=== PATIENT | female | born 1955 | race Two or more races ===

== ENCOUNTER → 2024-04-07 | Outpatient (CLI) | payer OTHER, SELFPAY ==
[2024-04-07 10:02] LABS: Collection Type, Urine Clean Catch
[2024-04-07 10:31] LABS: Basophils % (Auto) 0 % (0-2.5); Eosinophils # (Auto) 0.1 Thou/mm3 (0.0-0.5); Eosinophils % (Auto) 3 % (0-10); Hematocrit 39.5 % (36.0-46.0); Hemoglobin 13.4 g/dL (12.0-16.0); Immature Granulocytes % (Auto) 1 % (0-0); Immature Granulocytes Auto 0.03 Thou/mm3 (0.00-0.00); Lymphocytes # (Auto) 0.9 Thou/mm3 (1.0-4.8); Lymphocytes % (Auto) 18 % (10-50); Mean Corpuscular HGB Conc 33.9 g/dl (31.0-37.0); Mean Corpuscular Hemoglobin 30.7 pg (25.0-35.0); Mean Corpuscular Volume 91 fL (80-100); Monocytes # (Auto) 0.4 Thou/mm3 (0.0-0.8); Monocytes % (Auto) 8 % (0-12); Neutrophils # (Auto) 3.5 Thou/mm3 (1.8-7.7); Neutrophils % (Auto) 70 % (37-80); Nucleated Red Blood Cell % 0 /100 WBC (0); Platelet Count 263 Thou/mm3 (140-440); RDW Standard Deviation 40.5 fL (36.4-46.3); Red Blood Count 4.36 Miln/mm3 (4.00-5.20)
[2024-04-07 10:39] LABS: Bilirubin,Urine Negative (Negative); Blood,Urine Negative (Negative); Clarity,Urine Clear (Clear/Hazy); Color,Urine Lt-Yellow (Lt Yel-Yel); Culture Indicated,Urine Not Indicated; Glucose, Urine Negative (Negative); Ketones,Urine Negative (Negative); Leukocyte Esterase,Urine Negative (Negative); Nitrite,Urine Negative (Negative); PH,Urine 6.5 (5.0-7.0); Protein,Urine Negative (Neg - Trace); RBC,Urine < 1 /hpf (0-3); Specific Gravity,Urine 1.013 (1.001-1.035); Squamous Epithelial Cell,Urine < 1 /hpf (0-5); Urobilinogen,Urine Negative mg/dL (0.0-1.0); WBC,Urine < 1 /hpf (0-5)
[2024-04-07 10:48] LABS: Alanine Aminotransferase 14 U/L (10-49); Albumin, Serum 4.7 gm/dL (3.4-4.8); Albumin/Globulin Ratio 1.8 (1.2-2.2); Alkaline Phosphatase 112 U/L (46-116); Anion Gap 5 (7-16); Aspartate Amino Transferase 15 U/L (0-34); BUN/Creatinine Ratio 19 Ratio (12-20); Bilirubin,Total 0.4 mg/dL (0.3-1.2); Blood Urea Nitrogen 17 mg/dL (9-23); Calcium 9.6 mg/dL (8.3-10.6); Calcium (Corrected) 9.6 mg/dL (8.5-10.1); Carbon Dioxide 28.4 mMol/L (20.0-31.0); Chloride 103 mMol/L (98-107); Cholesterol 178 mg/dL (132-200); Creatinine (Component) 0.9 mg/dL (0.6-1.3); Free T4 (Free Thyroxine) 1.05 ng/dL (0.89-1.76); Globulin 2.6 gm/dL (2.3-3.5); Glucose 128 mg/dL (74-106); HDL Cholesterol 59 mg/dL (40-60); LDL Cholesterol,Calculated 104 mg/dL (0-130); Osmolality,Calculated 275 (275-295); Potassium 3.8 mMol/L (3.4-5.1); Sodium 136 mMol/L (136-145); Thyroid Stimulating Hormone 3.63 uIU/mL (0.55-4.78); Total Protein 7.3 gm/dL (5.7-8.2); Triglycerides 76 mg/dL (30-150); eGFR > 60 See Note
[2024-04-07 10:59] LABS: Creatinine MALB Rnd Ur 56 mg/dL (30-125); Microalbumin, Random Urine < 3 mg/L (0-300)
[2024-04-07 11:32] LABS: Glucose Estimated Average 137 mg/dL (80-131); Hemoglobin A1C 6.4 % Hgb (4.8-6.0)
== END | disposition home or self-care (01) ==
LOC: COPL 09:12
PROVIDERS: PCP Internal Medicine; Referring Provider Internal Medicine; Visit Provider Internal Medicine
DX: E11.65 Type 2 diabetes mellitus with hyperglycemia (principal); I10 Essential (primary) hypertension
CPT/HCPCS: 36415; 80053; 80061; 81001; 82043; 82570; 83036; 84439; 84443; 85025

== ENCOUNTER → 2024-04-17 | Outpatient (CLI) | payer OTHER, SELFPAY ==
[2024-04-17 15:11] LABS: OBS Card Expiration Date 2029/09; OBS Card Lot # 23001; OBS Performed By LAB; OBS QC OK? Yes
[2024-04-17 16:00] LABS: OBS Developer Lot # 23003; Occult Blood, Stool Negative (Negative); Occult Blood, Stool #2 Negative (Negative); Occult Blood, Stool #3 Negative (Negative)
== END | disposition home or self-care (01) ==
LOC: SLDO 14:48
PROVIDERS: PCP Internal Medicine; Referring Provider Internal Medicine; Visit Provider Internal Medicine
DX: E11.65 Type 2 diabetes mellitus with hyperglycemia (principal); I10 Essential (primary) hypertension
CPT/HCPCS: 82270

== ENCOUNTER 2024-07-27 09:15 | Emergency (ER) | payer OTHER, SELFPAY ==
[2024-07-27] VITALS (9 sets, daily range): BP systolic 134–163; BP diastolic 68–88; PULSE 66–94; RESP 15–23; TEMP 36.4–36.6; O2SAT 96–100; BMI 35.1
--- NOTE | 2024-07-27 09:49 | EKG_ITS ---
[facility] Test Date: 2024-07-27 Pat Name: AELSIA GUERRERO Department: Room: - Gender: Female Head Of Music: : 1955 Requested By: Nii Sorto Order Number: [id number] Reading MD: Nii Sorto Measurements Intervals [place] Rate: 65 P: -28 CT: 156 QRS: 13 QRSD: 93 T: 40 QT: 403 QTc: 422 Interpretive Statements SINUS RHYTHM LOW QRS VOLTAGE IN PRECORDIAL LEADS [QRS DEFLECTION < 1.0 mV IN CHEST LEADS] Compared to ECG 05/23/2022 11:57:31 No significant changes /store/S0/[id number]/ecg/[id number].pdf
--- NOTE | 2024-07-27 09:49 | XR_ITS ---
Examination: CT abdomen and pelvis without contrast. Coronal 3-D reconstructions. Sagittal 2-D reconstructions. Date and time of exam:July 27, 2024 1019 hrs. Indications: Generalized abdominal pain and nausea beginning 4 days ago CTDI: vol (mGy): 9.06 DLP: (mGycm): 497 Technique: Axial images of the abdomen have been obtained, 3 mm slice thickness Intravenous contrast material has not been administered. Low dose protocols were performed. One or more of the following dose reduction techniques were used; automated exposure control, adjustment of the mA and/or KV according to patient size, use of iterative reconstruction technique. Findings: Diffuse fatty infiltration throughout the liver, 3 mm liver calcification Hepatomegaly 17 cm No splenic pancreatic or adrenal mass lesion No gallstones Mild right moderate left renal parenchymal scar formation, no hydronephrosis or renal calculi Appendix is not visualized, no pericecal inflammatory change A few loops of fluid distended small bowel in the left abdomen, coronal image 58 No bowel obstruction No diverticulitis Atrophic anteverted uterus No adnexal mass No bladder mass Prominent osteopenia Impression: Mild hepatomegaly, fatty liver Mild right moderate left renal parenchymal scar formation No hydronephrosis or ureteral calculi Mild small bowel ileus versus enteritis No obstruction No CT findings of appendicitis or diverticulitis
--- NOTE | 2024-07-27 09:50 | PD.EDRME ---
Rapid Medical Screening Exam RME Arrival date/time: 07/27/24 09:15 69-year-old female with a history of hyperlipidemia presents to the emergency room with a chief complaint of right-sided flank pain and generalized 8 out of 10 abdominal pain, nausea, and dizziness x 2 days. I have greeted and performed a focused initial assessment of this patient. A comprehensive ED assessment and evaluation of the patient, analysis of all test results, and completion of the medical decision making process will be conducted by additional ED providers. Time Seen by Provider: 07/27/24 09:42 Vital signs: Vital Signs Temperature 97.5 F 07/27/24 09:48 Pulse Rate 73 07/27/24 09:48 Respiratory Rate 18 07/27/24 09:48 Blood Pressure 136/82 H 07/27/24 09:48 Pulse Oximetry (%) 100 07/27/24 09:48 Oxygen Delivery Method Room Air 07/27/24 09:48 Vital signs reviewed by provider: Yes
[2024-07-27] MEDS: KETOROLAC INJ 60 MG/2 ML VIAL 30 MG IM (10:00)
[2024-07-27 10:15] LABS: Basophils % (Auto) 1 % (0-2.5); Eosinophils % (Auto) 1 % (0-10); Hematocrit 39.5 % (36.0-46.0); Hemoglobin 13.4 g/dL (12.0-16.0); Immature Granulocytes % (Auto) 0 % (0-0); Immature Granulocytes Auto 0.03 Thou/mm3 (0.00-0.00); Lymphocytes # (Auto) 0.7 Thou/mm3 (1.0-4.8); Lymphocytes % (Auto) 10 % (10-50); Mean Corpuscular HGB Conc 33.9 g/dl (31.0-37.0); Mean Corpuscular Hemoglobin 29.9 pg (25.0-35.0); Mean Corpuscular Volume 88 fL (80-100); Monocytes # (Auto) 0.4 Thou/mm3 (0.0-0.8); Monocytes % (Auto) 5 % (0-12); Neutrophils # (Auto) 6.1 Thou/mm3 (1.8-7.7); Neutrophils % (Auto) 84 % (37-80); Nucleated Red Blood Cell % 0 /100 WBC (0); Platelet Count 234 Thou/mm3 (140-440); Red Blood Count 4.48 Miln/mm3 (4.00-5.20); White Blood Count 7.4 Thou/mm3 (3.6-11.0)
[2024-07-27 10:22] LABS: B-Type Natriuretic Peptide 25 pg/mL (0-100)
[2024-07-27 10:23] LABS: Alanine Aminotransferase 14 U/L (10-49); Albumin, Serum 4.5 gm/dL (3.4-4.8); Albumin/Globulin Ratio 1.7 (1.2-2.2); Alkaline Phosphatase 109 U/L (46-116); Anion Gap 10 (7-16); Aspartate Amino Transferase 13 U/L (0-34); BUN/Creatinine Ratio 22 Ratio (12-20); Bilirubin,Total 0.3 mg/dL (0.3-1.2); Blood Urea Nitrogen 20 mg/dL (9-23); Calcium 9.4 mg/dL (8.3-10.6); Calcium (Corrected) 9.4 mg/dL (8.5-10.1); Carbon Dioxide 24.5 mMol/L (20.0-31.0); Chloride 102 mMol/L (98-107); Creatinine (Component) 0.9 mg/dL (0.6-1.3); Estimated Creatinine Clearance 58.1 mL/min (>60); Globulin 2.7 gm/dL (2.3-3.5); Glucose 207 mg/dL (74-106); Lipase 31 U/L (12-53); Osmolality,Calculated 280 (275-295); Potassium 4.3 mMol/L (3.4-5.1); Sodium 136 mMol/L (136-145); Total Protein 7.2 gm/dL (5.7-8.2); Troponin I < 0.002 ng/mL (0.0-0.045); eGFR > 60 See Note
--- NOTE | 2024-07-27 11:03 | PD.EDABDPN ---
ED Abdominal Pain RME/HPI General Chief Complaint: Abdominal Pain Stated complaint: WEAKNESS Time seen by provider: 07/27/24 09:42 Arrival date/time: 07/27/24 09:15 RME / HPI RME / HPI narrative: 07/27/24 09:15 69-year-old female with a history of hyperlipidemia presents to the emergency room with a chief complaint of right-sided flank pain and generalized 8 out of 10 abdominal pain, nausea, and dizziness x 2 days. I have greeted and performed a focused initial assessment of this patient. A comprehensive ED assessment and evaluation of the patient, analysis of all test results, and completion of the medical decision making process will be conducted by additional ED providers. DR. BOATENG MAIN ED EVALUATION: 69 year old female with past medical history significant for hypertension, hypercholesterolemia presents to the Emergency Department with complaint of right sided abdominal pain onset 4 days ago with associated bloating. Pain is described as aching and rated moderate in severity. No similar symptoms in the past. Per daughter, patient has been dizzy and weak. Patient also reports nausea but no vomiting. Normal bowel movement. Patient speaks English and daughter is translating. Patient denies any of the following: rectal bleeding, vomiting, diarrhea, chest pain, shortness of breath, or any other symptoms at this time. Related Data Home Medications ?Medication ?Instructions ?Recorded ?Confirmed pravastatin 20 mg tablet 20 mg PO DAILY #0 tabs 10/06/14 11/28/23 (Pravachol) lisinopril 20 1 tab PO QDAY 05/25/19 11/28/23 mg-hydrochlorothiazide 12.5 mg tablet Allergies Allergy/AdvReac Type Severity Reaction Status Date / Time Penicillins Allergy Severe Rash Verified 07/27/24 09:32 Review of Systems Review of Systems Systems Reviewed: All systems reviewed, normal except as documented Narrative Review of Systems: GEN: No fever, no chills, no weight loss EYES: No discharge, no visual changes, no pain HEENT: No ear pain, no congestion, no sore throat PULM: No shortness of breath, no cough, no congestion CV: No chest pain, no dyspnea on exertion, no palpitations GI: + nausea, no vomiting, no diarrhea, + right sided abdominal pain with associated bloating, no constipation : No frequency, no urgency and no dysuria MUSC/SKEL: No joint pain, no back pain SKIN: No rash PSYCH: No hallucinations, no depression HEME/LYMPH: No easy bleeding or bruising tendencies NEURO: + generalized dizziness and weakness, no headache Past Medical History Past Medical History CARDIAC: Positive Cardiac Disorders, Hypercholesterolemia (takes PO med) and Hypertension (takes PO med) GASTROINTESTINAL: Positive Gastrointestinal Disorders, Ulcer and Gastroesophageal Reflux Disease REPRODUCTIVE: Positive Previous Pregnancies (G3) MUSCULOSKELETAL: Positive Musculoskeletal Disorders, Arthritis and Carpal Tunnel Syndrome (right trigger finger) ENT: Positive Deafness ([place] [facility] HEARING AIDE, RIGHT COCHLEAR IMPLANT) OTHER HISTORY: Positive Hospitalization ([facility]) Surgical History SURGICAL: Positive Cardiac Surgery, Ear Surgery (RIGHT EAR COCHLEAR IMPLANT) and Joint Replacement Social History SMOKING STATUS: Never smoker SUBSTANCE USE: does not use ALCOHOL: Never ED Exam Narrative Physical exam: Physical Exam: General: The vital signs were reviewed. The patient is non-toxic, in no apparent distress and appears healthy with a patent airway, no respiratory distress and has no apparent circulatory problems. Head & Scalp: Normocephalic, atraumatic. Face: Appears normal and is without lesions, deformity. Ears: Left external pinna appears normal. Right external pinna appears normal. Eyes: The sclera is anicteric. No obvious photophobia. The Left and Right Orbit/Lid/Conjunctiva appears normal without swelling, discoloration or injection. Nose: The nose is without deformity, discharge or tenderness; Throat: Appears normal. The mucous membranes are pink and moist without exudates, redness or mass seen. The tongue appears normal. Neck: The neck is supple and no apparent mass or adenopathy. Chest: The chest wall is normal in size and symmetry and has no chest wall tenderness or crepitus. The patient displays normal ventilator effort without retractions, accessory muscle use and has adequate air movement bilaterally with no wheezes and no rales. Cardiovascular: Regular rate and rhythm; No murmurs, rubs, or gallops; Gastrointestinal: The abdomen appears normal. No obvious hernias or mass. The abdomen has some very vague right upper right upper lateral discomfort otherwise is soft and benign, non-distended, with no pain, no guarding and no rebound tenderness. Bowel sounds are present and normal sounding. No CVA tenderness. Genitourinary: Normal inspection Back/Spine: Nontender normal inspection Extremities/Musculoskeletal/lymphatic: The bilateral upper and lower extremities are warm. There is no evidence of arterial insufficiency. There is no evidence of venous insufficiency/edema. The patient spontaneously moves bilateral upper and lower extremities with no pain and no limitation of movement. There is no apparent, injury or trauma. Skin: The skin is warm, dry and intact. No rashes. No petechia. No purpura. No abnormal bruising. The color is appropriate with no cyanosis. Mental status/Psychiatric: Mental status is appropriate for age. The patient has no apparent delusions, visual hallucinations, no apparent audible hallucinations. The patient has no apparent suicidal thoughts/ideation and no apparent homicidal thoughts/ideation. Neurological: The patient is awake, alert, interactive, cordial, cooperative and is oriented to name and situation. The patient follows commands and answers historical question with no impairment. There is no visual disturbance apparent. The pupils are equal and reactive bilaterally with normal eye movements and no diplopia The bilateral upper and lower extremities have normal strength, normal range of motion and normal functioning. The gait, station and balance appear to be baseline with no acute change Course Quality Measures none Orders Category Date Time Status EKG (ED ONLY) *Do not use* NOW Care 07/27/24 09:[address] abdomen pelvis wo con Stat Exams 07/27/24 09:49 Completed EKG (ED Only) Stat Exams 07/27/24 09:49 Draft US abdomen limited Stat Exams 07/27/24 11:08 Completed BNP [B-Type Natriuretic Peptide] Stat Lab 07/27/24 10:00 Completed CBC Stat Lab 07/27/24 10:00 Completed CMP [Comprehensive Metabolic Panel] Stat Lab 07/27/24 10:00 Completed Lipase Stat Lab 07/27/24 10:00 Completed Troponin I Stat Lab 07/27/24 10:00 Completed UA [Urinalysis] Stat Lab 07/27/24 09:49 Ordered Urinalysis, C/S if Indicated Stat Lab 07/27/24 11:15 Completed Urine Culture Stat Lab 07/27/24 11:15 Received Ketorolac Inj [Toradol Inj] Med 07/27/24 09:49 Discontinued 30 mg IM X1 ONE Vital Signs Vital signs: Vital Signs Temperature 97.5 F 07/27/24 09:48 Pulse Rate 73 07/27/24 09:48 Respiratory Rate 18 07/27/24 09:48 Blood Pressure 136/82 H 07/27/24 09:48 Pulse Oximetry (%) 100 07/27/24 09:48 Oxygen Delivery Method Room Air 07/27/24 09:48 Abdominal Pain [facility] Narrative [facility] Narrative:: I, Stacy Medina, am scribing for and in the presence of Dr. Boateng. Patient is a 69-year-old English speaking lady comes in with her daughters whose had some upper right-sided abdominal pain and patient reported feeling bloating or a ball sensation. She has had no vomiting or diarrhea. She has had no fever. She had a medical workup which included CBC which was within normal limits. Chemistries are unremarkable electrolytes are normal kidney functions normal AST ALT are 13 and 14 troponin was negative BNP was negative catheter urine specimen came back with 2+ ketones otherwise negative. CT scan of the abdomen reveals no acute surgical problems or some scarring described on the left kidney but no hydronephrosis is seen. There is no mass or tumor seen. Dilated of uncertain significance concerning for either ileus but no small bowel obstruction is seen. Ultrasound was done which reveals no gallstones. Reevaluation at 1530 hrs. the patient is smiling alert she ambulated the halls without difficulty. Her vital signs are stable. She feels good and wants to go home. Family is advised to give her clear liquids return if getting worse and follow-up with doctor in 1 to 3 days. They know if the pain is getting worse to return for reevaluation. Patient data External records reviewed:: [facility] previous records (Reviewed colonoscopy note by Dr. Baeza dated 12/04/23) Clinical information provided by:: patient and family (daughter translated) Social determinants that could affect healthcare access:: none Patient has the following chronic illnesses:: Hypertension, hypercholesterolemia How is presenting disease/condition affected by chronic disease/condition?: exacerbated by Evaluation data The following diagnostics were reviewed and interpreted by me:: lab results, radiology exam(s) and EKG tracing(s) (EKG#1: EKG at 1004 hours. Interpreted by me: sinus rhythm, rate 65, no STEMI) Lab and/or radiology exams considered but not ordered:: none Interpretation Summary: See above under MDM narrative. RADIOLOGY Procedure(s): CT abdomen pelvis wo con Accession Number(s): [id number] cc: Nii Rivera; Qamar Cowart MD~ Examination: CT abdomen and pelvis without contrast. Coronal 3-D reconstructions. Sagittal 2-D reconstructions. Date and time of exam:July 27, 2024 1019 hrs. Indications: Generalized abdominal pain and nausea beginning 4 days ago CTDI: vol (mGy): 9.06 DLP: (mGycm): 497 Technique: Axial images of the abdomen have been obtained, 3 mm slice thickness Intravenous contrast material has not been administered. Low dose protocols were performed. One or more of the following dose reduction techniques were used; automated exposure control, adjustment of the mA and/or KV according to patient size, use of iterative reconstruction technique. Findings: Diffuse fatty infiltration throughout the liver, 3 mm liver calcification Hepatomegaly 17 cm No splenic pancreatic or adrenal mass lesion No gallstones Mild right moderate left renal parenchymal scar formation, no hydronephrosis or renal calculi Appendix is not visualized, no pericecal inflammatory change A few loops of fluid distended small bowel in the left abdomen, coronal image 58 No bowel obstruction No diverticulitis Atrophic anteverted uterus No adnexal mass No bladder mass Prominent osteopenia Impression: Mild hepatomegaly, fatty liver Mild right moderate left renal parenchymal scar formation No hydronephrosis or ureteral calculi Mild small bowel ileus versus enteritis No obstruction No CT findings of appendicitis or diverticulitis Dictated By: Qamar Cowart MD Procedure(s): US abdomen limited Accession Number(s): [id number] cc: Garrett Boateng MD; Qamar Cowart MD; Estella Marshall MD~ Examination: Abdomen sonogram, Limited Date and time of exam: July 27, 2024 1157 hrs. Indications: Right upper abdominal pain beginning 3 months ago worse today Technique: Real-time villafana scale transabdominal sonographic images of the upper abdomen obtained. Findings: Normal gallbladder Normal common bile duct 0.5 cm Pancreatic head 2.4 cm Fatty liver, 16.5 cm 6 mm calcification Normal hepatopedal portal venous flow Patent IVC Impression: Normal gallbladder Normal common bile duct Dictated By: Qamar Cowart MD Medications / Prescriptions Medications or Prescriptions considered but not ordered:: none Medication administrations:: Medication Administration History Discontinued Medications Ketorolac Tromethamine (Ketorolac Inj 60 Mg/2 Ml Vial) 30 mg IM X1 ONE Stop: 07/27/24 09:50 Last Admin: 07/27/24 10:00 Dose: 30 mg Documented By: BD see above Consultations Consultation(s) initiated? (list below): No Diagnosis Differential diagnosis abdominal pain: abdominal pain, pancreatitis and other (gallstones) Most likely diagnosis given after review of the tests above:: See below Admission Indicated Admission indicated?: not indicated Admission Request Was there a request for admission?: No Disposition Plan Disposition Plan: Discharge Discharge Attestation Discharge Attestation: The patient and all family members were given an opportunity to ask questions and understood the discharge instructions. Discharge instructions specifically effects, indications for sooner follow up or return to the emergency department, and the expected course of current diagnosis. Patient condition: Stable Discharge Plan Plan Patient Disposition: HOME (Self Care) Prescriptions/Referrals Prescriptions/Med Rec: No Action pravastatin [Pravachol] 20 MG tablet 20 mg PO DAILY Qty: 0 lisinopril-hydrochlorothiazide 20-12.5 mg Tablet 1 tab PO QDAY Referrals: Toma Daniels MD [Primary Care Provider] - In 1 week Problem List Clinical Impression: Abdominal pain, Ileus Patient/Caregiver Discharge Instructions Education Materials: Abdominal Pain, Ileus Additional Instructions: Today your medical workup reveals essentially normal urine and blood test. Your CT scan has a few loops of small bowel which are dilated suggesting a possible ileus. This is nonspecific and may be a viral illness versus other things. As we discussed if you are getting worse in any way please return for reevaluation in 6 to 12 hours. Use clear liquids advance as tolerated. Follow-up with your doctor in 1 to 2 days as we discussed. And if you are getting worse in any way please return for reevaluation. Print Language: English Stand Alone Forms: Patient Portal Info Letter
--- NOTE | 2024-07-27 11:08 | XR_ITS ---
Examination: Abdomen sonogram, Limited Date and time of exam: July 27, 2024 1157 hrs. Indications: Right upper abdominal pain beginning 3 months ago worse today Technique: Real-time villafana scale transabdominal sonographic images of the upper abdomen obtained. Findings: Normal gallbladder Normal common bile duct 0.5 cm Pancreatic head 2.4 cm Fatty liver, 16.5 cm 6 mm calcification Normal hepatopedal portal venous flow Patent IVC Impression: Normal gallbladder Normal common bile duct
[2024-07-27 11:25] LABS: Collection Type, Urine Catheter; RBC,Urine 0 /hpf (0-3)
[2024-07-27 12:03] LABS: Bilirubin,Urine Negative (Negative); Blood,Urine Negative (Negative); Clarity,Urine Clear (Clear/Hazy); Color,Urine Lt-Yellow (Lt Yel-Yel); Culture Indicated,Urine Not Indicated; Glucose, Urine Negative (Negative); Ketones,Urine 2+ (Negative); Leukocyte Esterase,Urine Negative (Negative); Nitrite,Urine Negative (Negative); Protein,Urine Negative (Neg - Trace); Squamous Epithelial Cell,Urine < 1 /hpf (0-5); Urobilinogen,Urine Negative mg/dL (0.0-1.0); WBC,Urine 2 /hpf (0-5)
== END 2024-07-27 15:59 | disposition home or self-care (01) ==
PROVIDERS: Nurse Practitioner Family; Emergency Provider Emergency Medicine; PCP Internal Medicine
DX: K56.7 Ileus, unspecified (principal); K76.0 Fatty (change of) liver, not elsewhere classified; N28.89 Other specified disorders of kidney and ureter; R94.31 Abnormal electrocardiogram [ECG] [EKG]; I10 Essential (primary) hypertension; E78.00 Pure hypercholesterolemia, unspecified
CPT/HCPCS: 51701; 36415; 74176; 76705; 80053; 81001; 83690; 83880; 84484; 85025; 87086; 93005; 96372; 99284; J1885

== ENCOUNTER → 2024-12-10 | Outpatient (CLI) | payer OTHER, SELFPAY ==
--- NOTE | 2024-12-10 11:45 | XR_ITS ---
Examination: Screening digital mammography, bilateral Computer aided detection 3-D breast Tomosynthesis, bilateral Date and time of exam: December 10, 2024 1130 hours Compared to mammograms dating to December 28, 2020 Indication: Screening Technique: Nonmagnified MLO, CC views of the breasts to been obtained, reconstructed from 3-D Tomosynthesis images. R2 computer aided detection program utilized for evaluation of suspicious masses and/or abnormal calcifications. 3-D Tomosynthesis images obtained. Findings: Scattered areas of fibroglandular density Benign calcifications. No interval suspicious masses Impression: BI-RADS category II: Benign Findings. Recommend 1 year follow-up mammogram.
== END | disposition home or self-care (01) ==
PROVIDERS: Referring Provider Internal Medicine; Visit Provider Internal Medicine
DX: Z12.31 Encounter for screening mammogram for malignant neoplasm of breast (principal); R92.323 Mammographic fibroglandular density, bilateral breasts; R92.1 Mammographic calcification found on diagnostic imaging of breast
CPT/HCPCS: 77063; 77067

== ENCOUNTER → 2024-12-23 | Outpatient (CLI) | payer OTHER, SELFPAY ==
--- NOTE | 2024-12-23 08:32 | XR_ITS ---
Examination: Hand, right 3 views Technique: Hand AP, oblique, lateral 3 views Date and time of exam: December 23, 2024 0849 hours INDICATIONS: Right wrist and hand pain beginning one week ago. FINDINGS: Severe osteopenia Diffuse mild narrowing joints of the wrist and hand No erosive arthritis No cortical bone destruction No avascular necrosis No opaque foreign bodies IMPRESSION: Diffuse mild narrowing joints of the wrist and hand No erosive arthritis
--- NOTE | 2024-12-23 08:32 | XR_ITS ---
Examination: Wrist, right 3 views Technique: Wrist AP, oblique, lateral 3 views Date and time of exam: December 23, 2024 0849 hours INDICATIONS: Right wrist pain beginning one week ago. FINDINGS: Significant osteopenia. Mild narrowing radiocarpal intercarpal and carpometacarpal joints. No erosive arthritis. No fracture IMPRESSION: Significant osteopenia. Mild narrowing joints of the wrist
== END | disposition home or self-care (01) ==
LOC: CDIM 08:24
PROVIDERS: PCP Internal Medicine; Referring Provider Internal Medicine; Visit Provider Internal Medicine
DX: M85.88 Other specified disorders of bone density and structure, other site (principal)
CPT/HCPCS: 73110; 73130

== ENCOUNTER → 2025-01-26 | Outpatient (CLI) | payer OTHER, SELFPAY ==
--- NOTE | 2025-01-26 13:20 | XR_ITS ---
Examination: Bone densitometry Date and time of exam:January 26, 2025, 1342 hours. INDICATIONS: Menopause age 55. Technique: Lumbar spine and hip total bone mineralization values of an calculated. Peak reference and age match control results have been displayed. Findings: Lumbar spine total bone mineralization is0.702 gm/cm2. This is 3.1 standard deviations below peak reference. This is 1.1 standard deviations below age-matched controls. Hip total bone mineralization is 0.898 gm/cm2 This is 0.5 standard deviations below peak reference. This is . 9 standard deviations above age-matched controls Impression: There is osteoporosis based on lumbar spine measurements. There is osteopenia based on hip measurements Lumbar mineralization is decreased 27.8% compared with October 31, 2006 Hip mineralization is decreased 13.7% compared with October 31, 2006
== END | disposition home or self-care (01) ==
PROVIDERS: Referring Provider Internal Medicine; Visit Provider Internal Medicine
DX: M81.0 Age-related osteoporosis without current pathological fracture (principal); M85.89 Other specified disorders of bone density and structure, multiple sites
CPT/HCPCS: 77080

== ENCOUNTER → 2025-03-02 | Outpatient (CLI) | payer OTHER, SELFPAY ==
[2025-03-02 13:34] LABS: Alanine Aminotransferase 15 U/L (10-49); Albumin, Serum 4.4 gm/dL (3.4-4.8); Albumin/Globulin Ratio 1.8 (1.2-2.2); Alkaline Phosphatase 105 U/L (46-116); Anion Gap 7 (7-16); Aspartate Amino Transferase 14 U/L (0-34); BUN/Creatinine Ratio 23 Ratio (12-20); Bilirubin,Total 0.3 mg/dL (0.3-1.2); Blood Urea Nitrogen 18 mg/dL (9-23); Calcium 9.7 mg/dL (8.3-10.6); Calcium (Corrected) 9.7 mg/dL (8.5-10.1); Carbon Dioxide 29.0 mMol/L (20.0-31.0); Cardiac Risk Estimate 3.0 RATIO (3.7-5.6); Chloride 104 mMol/L (98-107); Cholesterol 180 mg/dL (132-200); Creatinine (Component) 0.8 mg/dL (0.6-1.3); Globulin 2.5 gm/dL (2.3-3.5); Glucose 121 mg/dL (74-106); HDL Cholesterol 60 mg/dL (40-60); LDL Cholesterol,Calculated 99 mg/dL (0-130); Osmolality,Calculated 282 (275-295); Potassium 4.4 mMol/L (3.4-5.1); Sodium 140 mMol/L (136-145); Total Protein 6.9 gm/dL (5.7-8.2); Triglycerides 103 mg/dL (30-150); eGFR > 60 See Note
[2025-03-02 13:36] LABS: Glucose Estimated Average 160 mg/dL (80-131); Hemoglobin A1C 7.2 % Hgb (4.8-6.0)
== END | disposition home or self-care (01) ==
LOC: COPL 11:45
PROVIDERS: PCP Internal Medicine; Referring Provider Internal Medicine; Visit Provider Internal Medicine
DX: E11.65 Type 2 diabetes mellitus with hyperglycemia (principal); I10 Essential (primary) hypertension
CPT/HCPCS: 36415; 80053; 80061; 83036

== ENCOUNTER → 2025-03-06 | Outpatient (CLI) | payer OTHER, SELFPAY ==
[2025-03-06 10:22] LABS: OBS Performed By LAB; OBS QC OK? Yes
[2025-03-06 11:48] LABS: OBS Developer Lot # 4-24-557749; Occult Blood, Stool Negative (Negative); Occult Blood, Stool #2 Negative (Negative); Occult Blood, Stool #3 Negative (Negative)
[2025-03-06 11:49] LABS: OBS Developer Expiration Date 2-28-27
== END | disposition home or self-care (01) ==
LOC: SLDO 10:10
PROVIDERS: PCP Internal Medicine; Referring Provider Internal Medicine; Visit Provider Internal Medicine
DX: E11.65 Type 2 diabetes mellitus with hyperglycemia (principal); I10 Essential (primary) hypertension
CPT/HCPCS: 82270